=== PATIENT | male | born 1995 | race Two or more races ===

== ENCOUNTER 2022-02-22 09:18 | Emergency (ER) | payer SELFPAY ==
[~2022-02-22] VITALS: Ht 185.4 cm; Wt 203.0 kg
[2022-02-22] MEDS ORDERED: LISI-716 PO (09:32)
[2022-02-22] MEDS ORDERED: CEFD300C2 PO (10:50)
[2022-02-22] MEDS ORDERED: TRAM50TA2 PO (10:50)
[2022-02-22] MEDS ORDERED: DICL50TA2 PO (10:50)
[2022-02-22 11:38] VITALS: BP 154/96
== END 2022-02-22 11:39 | disposition home or self-care (01) ==
LOC: ER 09:18
DX: K04.7 Periapical abscess without sinus (principal)

== ENCOUNTER 2023-01-15 18:59 | Emergency (ER) | payer MEDICAID, OTHER ==
[~2023-01-15] VITALS: Ht 185.4 cm; Wt 209.4 kg
[~2023-01-15 18:59] MED LIST: CEFD300C2 PO; DICL50TA2 PO; LISI10TA34 PO; TRAM50TA2 PO
[2023-01-15 19:25] VITALS: BP 188/104; RESP 20; O2SAT 97
[2023-01-15] MEDS ORDERED: cloNIDine HCL 0.1 MG TAB PO ONE (19:45)
[2023-01-15 20:09] LABS: Basophils # (auto) 0.1 10 ^3/uL (0-0.2); Basophils % (auto) 1.2 % (0.0-2.0); Eosinophils # (auto) 0.3 10 ^3/uL (0-0.8); Eosinophils % (auto) 3.4 % (0.0-7.0); Hematocrit 42.3 % (41.0-53.0); Hemoglobin 14.1 g/dL (13.5-17.5); Lymphocytes # (auto) 2.4 10 ^3/uL (0.4-5.4); Lymphocytes % (auto) 23.2 % (10.0-50.0); Mean Corpuscular Hemoglobin 27.2 pg (28.0-32.0); Mean Corpuscular Hgb Conc. 33.3 g/dL (32.0-36.0); Mean Corpuscular Volume 81.5 fL (80.0-100.0); Monocytes # (auto) 0.5 10 ^3/uL (0-1.3); Monocytes % (auto) 4.8 % (0.0-12.0); Neutrophils % (auto) 67.4 % (37.0-80.0); Nucleated Red Blood Cells % 0.1 %; Red Blood Cells 5.19 10^6/uL (4.5-5.90); Red Cell Distribution Width 14.9 % (11.8-14.3); White Blood Cell 10.3 10^3/uL (4.4-10.8)
[2023-01-15 20:19] LABS: Urine Bacteria NONE SEEN /hpf (None Seen); Urine Blood Negative /uL (Negative); Urine Clarity Clear (Clear); Urine Color Yellow (Yellow); Urine Mucus FEW (None Seen); Urine Protein, UAD 1+ (Negative); Urine Specific Gravity 1.026 (1.001-1.035); Urine WBC 1 /hpf (0 - 3)
[2023-01-15 20:23] LABS: Alanine Aminotransferase 81 U/L (7-40); Albumin 4.5 g/dL (3.2-4.8); Alkaline Phosphatase 78 U/L (46-116); Anion Gap 6.2 (5-15); Aspartate Aminotransferase 37 U/L (13-40); BUN/Creatinine Ratio 10.6 (10.0-20.0); Bilirubin, Total 0.3 mg/dL (0.2-1.0); Blood Urea Nitrogen 9 mg/dL (9-23); Calcium 9.5 mg/dL (8.5-10.1); Carbon Dioxide 27.8 mmol/L (20-30); Chloride 106 mmol/L (98-107); Glucose 171 mg/dL (74-106); Lipase 36 U/L (12-53); Potassium 3.4 mmol/L (3.5-5.1); Sodium 140 mmol/L (136-145); Total Protein 7.4 g/dL (5.7-8.2)
[2023-01-15] MEDS ORDERED: ONDANSETRON HCL 4 MG/2 ML VIAL IV ONE (22:45)
[2023-01-15] MEDS ORDERED: MORPHINE SULFATE 4 MG/ML SYR/VIAL IV ONE (22:45)
[2023-01-15] MEDS ORDERED: PANTOPRAZOLE 40 MG/10 ML VIAL INJ IV ONE (22:45)
[2023-01-15] MEDS ORDERED: SODIUM CHLORIDE 0.9% 1,000 ML IV ONE (22:45)
[2023-01-15] MEDS ORDERED: NIFE1TAB31 PO (22:48)
[2023-01-15] MEDS ORDERED: HYDR25TA5 PO (22:48)
[2023-01-15] MEDS ORDERED: ALBUAER3 IN (22:48)
[2023-01-15] MEDS ORDERED: LOSA100T58 PO (22:48)
[2023-01-15] MEDS ORDERED: FAMO20TA10 PO (22:48)
[2023-01-15] MEDS ORDERED: ZOFR4T PO (22:48)
[2023-01-15 22:58] VITALS: PULSE 91
== END 2023-01-16 01:27 | disposition home or self-care (01) ==
LOC: ER 18:59
DX: K29.70 Gastritis, unspecified, without bleeding (principal); R07.89 Other chest pain; I10 Essential (primary) hypertension; R16.0 Hepatomegaly, not elsewhere classified; K76.0 Fatty (change of) liver, not elsewhere classified; Z76.0 Encounter for issue of repeat prescription
CPT/HCPCS: 36415; 71045; 76705; 80053; 81001; 83690; 84484; 85025; 93005

== ENCOUNTER 2024-03-29 07:37 | Emergency (ER) | payer MEDICAID ==
[~2024-03-29] VITALS: Ht 185.4 cm; Wt 195.8 kg
[~2024-03-29 07:37] MED LIST changes: +ALBUAER3 IN; +FAMO20TA10 PO; +HYDR25TA5 PO; +LOSA-535 PO; +NIFE1TAB31 PO; +ZOFR4T PO
--- NOTE | 2024-03-29 07:55 | ED.PDOC ---
General HPI Comments 28 year old male presents to the ED with chief complaint of flank pain. Patient reports that he has been experiencing bilateral flank pain since 2 weeks ago, however, the past 2 days have been worse with associated symptoms of N/V/D, mild dysuria, frequent urination, and headache. Patient relays that he was started on Wegovy 2 weeks ago, but had no problems with Ozempic before. Patient states he had taken a COVID-19 test yesterday which came back negative. Patient denies any fever, chills, cough, dizziness, hematuria, or abdominal pain. Time Seen by MD: 07:51 Reviewed notes: Nurses Notes, Medications, Allergies Allergies: Coded Allergies: NO KNOWN ALLERGIES (Unverified , 02/22/22) Home Meds Active Scripts Albuterol Sulfate (VENTOLIN MDI) 90 Mcg Ih, 1 PUFF IN Q4HR, #1 INH as needed for shortness of breath Prov:TANNER CHENEY Q ETHYLENE PLANT OPERATOR 01/15/23 Nifedipine (Nifedipine Er) 30 Mg Tab, 1 TAB PO DAILY for 30 Days, #30 TAB 1 Refill Prov:NONILUKEA Q ETHYLENE PLANT OPERATOR 01/15/23 Hctz (Hydrochlorothiazide) 25 Mg Tab, 1 TAB PO DAILY for 30 Days, #30 TAB Prov:NONILUKESteffany Q ETHYLENE PLANT OPERATOR 01/15/23 Losartan Potassium (Losartan Potassium) 100 Mg Tab, 1 TAB PO DAILY, #30 TAB Prov:NONILUKESteffany Q ETHYLENE PLANT OPERATOR 01/15/23 Ondansetron Odt 4MG Tab (ZOFRAN PO) 4 Mg Tb, 1 TAB PO Q8HR, #20 TAB ODT TAB-DISSOLVE IN MOUTH, THEN SWALLOW Prov:NONIHERBERRAQUEL Q ETHYLENE PLANT OPERATOR 01/15/23 Famotidine (PEPCID TABLET) 20 Mg Tb, 1 TAB PO BID for 30 Days, #60 TAB Prov:NONIHERBERRAQUEL Q ETHYLENE PLANT OPERATOR 01/15/23 Tramadol Hcl (Tramadol Hcl) 50 Mg Tab, 50 MG PO TID for 10 Days, #30 TAB Prov:CLIVE STEWART MD 02/22/22 Diclofenac Potassium (Diclofenac Potassium) 50 Mg Tab, 1 TAB PO TIDP for 10 Days, #30 TAB Prov:CLIVE STEWART MD 02/22/22 Cefdinir (Cefdinir) 300 Mg Cap, 2 CAP PO DAILY for 10 Days, #20 CAP Prov:CLIVE STEWART MD 02/22/22 Reported Medications Lisinopril (Lisinopril) 10 Mg Tab, 10 MG PO DAILY for 30 Days, MG 02/22/22 Information Source: Patient Mode of Arrival: Ambulatory Severity: Moderate Timing: Weeks Duration: Since onset Prehospital treatment: None Onset: Spontaneous Symptoms: Dysuria, Frequency History of: None Location: (R) Flank, (L)Flank associated signs and symptoms: Nausea, Vomiting, Flank Pain, Dysuria, Frequency Past Medical History PAST MEDICAL HISTORY: HTN Surgical History: Denies all surgeries Family History Family History: Reviewed,noncontributory to illness Social History Smoker: Non-Smoker Alcohol: Denies ETOH Use Drugs: Denies Drug Use Lives In: Home Constitutional: denies: chills, diaphoresis, fatigue, fever, malaise, sweats, weakness, others EENTM: denies: blurred vision, double vision, ear bleeding, ear discharge, ear drainage, ear pain, ear ringing, eye pain, eye redness, hearing loss, mouth pain, mouth swelling, nasal discharge, nose bleeding, nose congestion, nose pain, photophobia, tearing, throat pain, throat swelling, voice changes, others Respiratory: denies: cough, hemoptysis, orthopnea, SOB at rest, shortness of breath, SOB with excertion, stridor, wheezing, others Cardiovascular: denies: chest pain, dizzy spells, diaphoresis, Dyspnea on exertion, edema, irregular heart beat, left arm pain, lightheadedness, pa lpitations, PND, syncope, others Gastrointestinal: reports: diarrhea, nausea, vomiting; denies: abdomen distended, abdominal pain, blood streaked bowels, constipated, dysphagia, difficulty swallowing, hematemesis, melena, poor appetite, poor fluid intake, rectal bleeding, rectal pain, others Genitourinary: reports: dysuria, flank pain, frequency; denies: burning, hematuria, incontinence, penile discharge, penile sore, pain, testicle pain, testicle swelling, urgency, others Neurological: reports: headache; denies: dizziness, fainting, left sided numb ness, left sided weakness, numbness, paresthesia, pre-existing deficit, right sided numbness, right sided weakness, seizure, speech problems, tingling, tremors, weakness, others Musculoskeletal: denies: back pain, gout, joint pain, joint swelling, muscle pain, muscle stiffness, neck pain, others Integumetry: denies: bruises, change in color, change in hair/nails, dryness, laceration, lesions, lumps, rash, wounds, others Allergic/Immunocompromised: denies: Difficulty Healing, Frequent Infections, Hives, Itching, others Hematologic/Lymphatic: denies: anemia, blood clots, easy bleeding, easy bruising, swollen glands, others Endocrine: denies: excessive hunger, excessive sweating, excessive thirst, excessive urination, flushing, intolerance to cold, intolerance to heat, unexplained weight gain, unexplained weight loss, others Psychiatric: denies: anxiety, bipolar disorder, depression, hopeless, panic disorder, schizophrenia, sleepless, suicidal, others All Other Systems: Reviewed and Negative Physical Exam General Appearance: No Apparent Distress, Obese HEENT: Normal ENT Inspection, PERRL/EOMI Neck: Full Range of Motion, Non-Tender, Normal, Normal Inspection Respiratory: Chest Non-Tender, Lungs Clear, No Accessory Muscle Use, No Respiratory Distress, Normal Breath Sounds Cardiovascular: No Edema, No JVD, No Murmur, No Gallop, Normal Peripheral Pulses, Regular Rate/Rhythm Breast Exam: Deferred Gastrointestinal: No Organomegaly, Non Tender, No Pulsatile Mass, Normal Bowel Sounds, Soft, Other (Bilateral CVA tenderness) Genitalia: Deferred Pelvic: Deferred Rectal: Deferred Extremities: No calf tenderness, Normal capillary refill, Normal inspection, Normal range of motion, Non-tender, No pedal edema Musculoskeletal : Apperance: Normal Neurologic: Alert, elementary reading tutor II-XII nml as Tested, No Motor Deficits, Normal Affect, Normal Mood, No Sensory Deficits Cerebellar Function: Normal Reflexes: Normal Skin: Dry, Normal Color, Warm Lymphatic: No Adenopathy Was a procedure done? Was a procedure done?: No Differential Diagnosis Kidney stone (Female): N/A Kidney stone (Male): N/A Penile/Scrotal: N/A Urinary Problem (Male): Plelonephritis, Urethritis, Urolithiasis, UTI Urinary Problem (Female): N/A X-Ray, Labs, Meds, VS Vital Signs Date Time Temp Pulse Resp B/P (MAP) Pulse Ox O2 Delivery O2 Flow Rate FiO2 11/20/24 08:01 98.0 90 18 164/107 (126) 98 Lab Test 03/29/24 08:30 03/29/24 08:10 Range/Units Urine Color Yellow Yellow Urine Clarity Clear Clear Urine pH 6.0 5.0-9.0 Urine Specific [place] 1.028 1.001-1.035 Urine Protein Trace H Negative Urine Ketones Negative Negative Urine Blood Trace H Negative /uL Urine Nitrite Negative Negative Urine Bilirubin Negative Negative Urine Urobilinogen 2 H Negative mg/dL Urine Leukocyte Esterase Negative Negative /uL Urine RBC 3 0 - 3 /hpf Urine WBC 4 0 - 3 /hpf Urine Squamous Epithelial Cells Few <5 /hpf Urine Bacteria None seen None Seen /hpf Urine Mucus Few None Seen Urine Glucose Normal Normal mg/dL White Blood Count 7.7 4.4-10.8 10^3/uL Red Blood Count 5.56 4.5-5.90 10^6/uL Hemoglobin 15.4 13.5-17.5 g/dL Hematocrit 45.5 41.0-53.0 % Mean Corpuscular Volume 81.8 80.0-100.0 fL Mean Corpuscular Hemoglobin 27.7 L 28.0-32.0 pg Mean Corpuscular Hemoglobin Concent 33.9 32.0-36.0 g/dL Red Cell Distribution Width 15.0 H 11.8-14.3 % Platelet Count 321 140-450 10^3/uL Mean Platelet Volume 7.6 6.9-10.8 fL Neutrophils (%) (Auto) 69.4 37.0-80.0 % Lymphocytes (%) (Auto) 19.4 10.0-50.0 % Monocytes (%) (Auto) 7.1 0.0-12.0 % Eosinophils (%) (Auto) 3.5 0.0-7.0 % Basophils (%) (Auto) 0.6 0.0-2.0 % Neutrophils # (Auto) 5.4 1.6-8.6 10 ^3/uL Lymphocytes # (Auto) 1.5 0.4-5.4 10 ^3/uL Monocytes # (Auto) 0.5 0-1.3 10 ^3/uL Eosinophils # (Auto) 0.3 0-0.8 10 ^3/uL Basophils # (Auto) 0 0-0.2 10 ^3/uL Nucleated Red Blood Cells 0.0 % Sodium Level 140 136-145 mmol/L Potassium Level 3.6 3.5-5.1 mmol/L Chloride Level 106 98-107 mmol/L Carbon Dioxide Level 27 20-31 mmol/L Anion Gap 7 5-15 Blood Urea Nitrogen 11 9-23 mg/dL Creatinine 0.84 0.700-1.30 mg/dL Glomerular Filtration Rate Calc 122 >90 mL/min BUN/Creatinine Ratio 13.1 10.0-20.0 Serum Glucose 92 74-106 mg/dL Calcium Level 9.3 8.7-10.4 mg/dL Chest XR: 1. No acute cardiopulmonary disease. Images Reviewed?: Images reviewed and evaluated by me Time of 1ST Reevaluation: 08:51 Reevaluation 1ST: Unchanged Patient Education/Counseling: Diagnosis, Treatment Family Education/Counseling: No Family Present Departure 1 Departure Time of Disposition: 11:21 (Patient's workup is benign. Patient's CBC BMP and UA are benign. Chest x-ray was benign as well. Patient likely with a viral syndrome. Discharge patient home with outpatient follow up) Impression: Primary Impression: Viral syndrome Additional Impressions: Myalgia Lower back pain Qualified Codes: M54.50 - Low back pain, unspecified Disposition: 01 HOME / SELF CARE / HOMELESS Condition: Stable Additional Instructions: You likely have a viral illness. It is important to stay well rested and well hydrated. You can take Tylenol and Motrin as needed for pain and fever. For a sore throat you can drink warm tea with honey. You can take [id number] pseudoephedrine for nasal congestion. He should follow up with your regular doctor within 1 week to ensure you are doing better. If your symptoms worsen or you have any other concerns please return to the emergency room. Discharged With: Self Critical Care Note Critical Care Time?: No Stability Stability form required: No Heart Score Heart Score: Heart Score Response (Comments) Value History N/A 0 EKG N/A 0 Age N/A 0 Risk Factors N/A 0 Troponin N/A 0 Total 0 I personally scribed for LEANNA GREER MD ([email or web address]) on 03/29/24 at 07:55. Electronically submitted by George Pollock ([email or web address]). I personally scribed for LEANNA GREER MD ([email or web address]) on 03/29/24 at 08:39. Electronically submitted by George Pollock ([email or web address]). LEANNA GREER MD Mar 29, 2024 07:55
[2024-03-29] MEDS: SODIUM CHLORIDE 0.9% 1,000 ML IV ONE (08:00)
[2024-03-29] MEDS: KETOROLAC TROMETH 30 MG/ML 1ML VIAL IV ONE (08:00)
[2024-03-29] MEDS: ACETAMINOPHEN 325 MG TAB PO ONE (08:00)
[2024-03-29] MEDS: ONDANSETRON HCL 4 MG/2 ML VIAL IV ONE (08:00)
[2024-03-29 08:01] VITALS: BP 164/107; PULSE 90; RESP 18; O2SAT 98
--- NOTE | 2024-03-29 08:17 | DVH ---
Procedure: XY CHEST TWO VIEWS ROUTINE 03/29/2024 07:54 AM Indication: cough Comparison: None TECHNIQUE: XY CHEST TWO VIEWS ROUTINE FINDINGS: Medical devices: None. Cardiomediastinal: The heart is normal in size. Pulmonary vasculature is within normal limits. Lungs: No focal pulmonary opacity is seen. The costophrenic angles are clear. No pneumothorax. Bones/soft tissues: No acute abnormality is noted. IMPRESSION: 1. No acute cardiopulmonary disease.
[2024-03-29 08:32] LABS: Basophils # (auto) 0 10 ^3/uL (0-0.2); Basophils % (auto) 0.6 % (0.0-2.0); Eosinophils # (auto) 0.3 10 ^3/uL (0-0.8); Eosinophils % (auto) 3.5 % (0.0-7.0); Hematocrit 45.5 % (41.0-53.0); Hemoglobin 15.4 g/dL (13.5-17.5); Lymphocytes # (auto) 1.5 10 ^3/uL (0.4-5.4); Lymphocytes % (auto) 19.4 % (10.0-50.0); Mean Corpuscular Hemoglobin 27.7 pg (28.0-32.0); Mean Corpuscular Hgb Conc. 33.9 g/dL (32.0-36.0); Mean Corpuscular Volume 81.8 fL (80.0-100.0); Monocytes # (auto) 0.5 10 ^3/uL (0-1.3); Monocytes % (auto) 7.1 % (0.0-12.0); Neutrophils # (auto) 5.4 10 ^3/uL (1.6-8.6); Neutrophils % (auto) 69.4 % (37.0-80.0); Platelet Count (auto) 321 10^3/uL (140-450); Red Blood Cells 5.56 10^6/uL (4.5-5.90); White Blood Cell 7.7 10^3/uL (4.4-10.8)
[2024-03-29 08:40] LABS: Chloride 106 mmol/L (98-107); Potassium 3.6 mmol/L (3.5-5.1); Sodium 140 mmol/L (136-145)
[2024-03-29 08:41] LABS: Anion Gap 7 (5-15); Carbon Dioxide 27 mmol/L (20-31)
[2024-03-29 08:42] LABS: Calcium 9.3 mg/dL (8.7-10.4)
[2024-03-29 08:46] LABS: Glucose 92 mg/dL (74-106)
[2024-03-29 08:47] LABS: Urine Bacteria None Seen /hpf (None Seen)
[2024-03-29 08:47] LABS: BUN/Creatinine Ratio 13.1 (10.0-20.0); Blood Urea Nitrogen 11 mg/dL (9-23)
[2024-03-29 08:51] LABS: Urine Blood TRACE /uL (Negative); Urine Clarity Clear (Clear); Urine Color Yellow (Yellow); Urine Mucus FEW (None Seen); Urine Protein, UAD TRACE (Negative); Urine Specific Gravity 1.028 (1.001-1.035); Urine Urobilinogen 2 mg/dL (Negative); Urine WBC 4 /hpf (0 - 3)
== END 2024-03-29 12:49 | disposition home or self-care (01) ==
LOC: ER 07:37
DX: B34.9 Viral infection, unspecified (principal); M79.10 Myalgia, unspecified site; M54.59 Other low back pain; I10 Essential (primary) hypertension; Z79.899 Other long term (current) drug therapy
CPT/HCPCS: 36415; 71046; 80048; 81001; 85025

== ENCOUNTER 2025-04-18 18:25 | Emergency (ER) | payer MEDICAID ==
[~2025-04-18] VITALS: Ht 185.4 cm; Wt 214.1 kg
--- NOTE | 2025-04-18 18:38 | ECG ---
[facility] Test Date: 2025-04-18 Test Time: 18:33:14 Pat Name: NEIL TADEO Department: ED Room: Gender: M Financial Accounting Analyst: MIKE : 1995 Requested By: WILLIAM JAY Order Number: [id number] Reading MD: Mohsen Smith Measurements Intervals [place] Rate: 98 P: 46 MS: 204 QRS: 27 QRSD: 103 T: -26 QT: 355 QTc: 454 Interpretive Statements Sinus rhythm Probable left atrial enlargement LVH with secondary repolarization abnormality Electronically Signed On 04-19-2025 20:11:55 PST by Mohsen Smith Please click the below link to view image of tracing.
[2025-04-18] MEDS ORDERED: hydrALAZINE HCL 20 MG/ML VL IV ONE (18:45)
[2025-04-18 18:57] LABS: Hematocrit 39.3 % (41.0-53.0); Hemoglobin 13.3 g/dL (13.5-17.5); Mean Corpuscular Hemoglobin 27.0 pg (28.0-32.0); Mean Corpuscular Volume 79.8 fL (80.0-100.0)
--- NOTE | 2025-04-18 19:08 | ED.PDOC ---
History of Present Illness HPI Comments 29 y/o morbidly obese M presents with c/c of stabbing/throbbing, midsternal chest pain, with associate dyspnea and anxiety. Patient endorses on sudden, unprovoked, and atraumatic onset of symptoms, earlier, today. Pain radiates down his left arm. He comments on associated dry mouth sensations. Pertinent history for HTN and obstructive sleep apnea, that he was assessed for, recently, via CPAP/BiPAP night study 1-2 nights ago. Denial of any further acute symptoms. Chief Complaint: Shortness of Breath Time Seen by MD: 18:45 Reviewed Notes: Nurses Notes, Medications, Allergies Allergies: Coded Allergies: NO KNOWN ALLERGIES (Unverified , 02/22/22) Home Meds Active Scripts Metoprolol Tartrate (LOPRESSOR TABLET) 50 Mg Tb, 1 TAB PO BID, #180 TAB 3 Refills Prov:WILLIAM JAY MD 04/18/25 Albuterol Sulfate (VENTOLIN MDI) 90 Mcg Ih, 1 PUFF IN Q4HR, #1 INH as needed for shortness of breath Prov:TANNER CHENEY Q AIR CONDITIONER INSTALLER HELPER 01/15/23 Nifedipine (Nifedipine Er) 30 Mg Tab, 1 TAB PO DAILY for 30 Days, #30 TAB 1 Refill Prov:TANNER CHENEY Q AIR CONDITIONER INSTALLER HELPER 01/15/23 Hctz (Hydrochlorothiazide) 25 Mg Tab, 1 TAB PO DAILY for 30 Days, #30 TAB Prov:TANNER CHENEY Q AIR CONDITIONER INSTALLER HELPER 01/15/23 Losartan Potassium (Losartan Potassium) 100 Mg Tab, 1 TAB PO DAILY, #30 TAB Prov:TANNER CHENEY Q AIR CONDITIONER INSTALLER HELPER 01/15/23 Ondansetron Odt 4MG Tab (ZOFRAN PO) 4 Mg Tb, 1 TAB PO Q8HR, #20 TAB ODT TAB-DISSOLVE IN MOUTH, THEN SWALLOW Prov:TANNER CHENEY Q AIR CONDITIONER INSTALLER HELPER 01/15/23 Famotidine (PEPCID TABLET) 20 Mg Tb, 1 TAB PO BID for 30 Days, #60 TAB Prov:TANNER CHENEY Q AIR CONDITIONER INSTALLER HELPER 01/15/23 Tramadol Hcl (Tramadol Hcl) 50 Mg Tab, 50 MG PO TID for 10 Days, #30 TAB Prov:CLIVE STEWART MD 02/22/22 Diclofenac Potassium (Diclofenac Potassium) 50 Mg Tab, 1 TAB PO TIDP for 10 D ays, #30 TAB Prov:CLIVE STEWART MD 02/22/22 Cefdinir (Cefdinir) 300 Mg Cap, 2 CAP PO DAILY for 10 Days, #20 CAP Prov:CLIVE STEWART MD 02/22/22 Reported Medications Lisinopril (Lisinopril) 10 Mg Tab, 10 MG PO DAILY for 30 Days, MG 02/22/22 Information Source: Patient Mode of Arrival: Ambulatory Severity: Moderate Timing: Hours Duration: Since onset Prehospital treatment: None Past Medical History PAST MEDICAL HISTORY: HTN Surgical History: Denies all surgeries Family History Family History: Reviewed,noncontributory to illness Social History Smoker: Non-Smoker Alcohol: Denies ETOH Use Drugs: Denies Drug Use Lives In: Home All Other Systems: Reviewed and Negative (As per HPI) Physical Exam Exam Comments hypertensive General Appearance: Mild Distress, Obese HEENT: Normal ENT Inspection, Pharynx Normal, TMs Normal Neck: Full Range of Motion, Non-Tender, Normal, Normal Inspection Respiratory: Chest Non-Tender, Lungs Clear, No Accessory Muscle Use, No Respiratory Distress, Normal Breath Sounds Cardiovascular: No Edema, No JVD, No Murmur, No Gallop, Normal Peripheral Pulses, Regular Rate/Rhythm Breast Exam: Deferred Gastrointestinal: No Organomegaly, Non Tender, No Pulsatile Mass, Normal Bowel Sounds, Soft Genitalia: Deferred Pelvic: Deferred Rectal: Deferred Extremities: No calf tenderness, Normal capillary refill, Normal inspection, Normal range of motion, Non-tender, No pedal edema Musculoskeletal : Apperance: Normal Neurologic: Alert, houseman II-XII nml as Tested, No Motor Deficits, Normal Affect, Normal Mood, No Sensory Deficits Cerebellar Function: Normal Reflexes: Normal Skin: Dry, Normal Color, Warm Lymphatic: No Adenopathy Was a procedure done? Was a procedure done?: No EKG EKG : Pulse Rate (adult): 98 [place]: Normal Cardiac Rhythm: NSR Block: None Hypertrophy: None ST: Normal Differential Dx Considerations may include: [place], PE, ACS, URI, PNA, angina, anxiety, among others X-Ray, Labs, Meds, VS Vital Signs Date Time Temp Pulse Resp B/P (MAP) Pulse Ox O2 Delivery O2 Flow Rate FiO2 04/18/25 21:07 97.2 104 18 175/116 (135) 95 97.2 04/18/25 20:59 95 18 100 Room Air* 0 21 04/18/25 20:56 97.9 100 18 212/119 (150) 95 97.9 04/18/25 20:36 212/119 04/18/25 19:08 98 04/18/25 18:33 98 04/18/25 18:26 98.1 106 18 209/122 99 98.1 Lab Test 04/18/25 19:35 04/18/25 18:41 Range/Units Troponin I High Sensitivity 14 13 </=54 ng/L White Blood Count 10.3 4.4-10.8 10^3/uL Red Blood Count 4.92 4.5-5.90 10^6/uL Hemoglobin 13.3 L 13.5-17.5 g/dL Hematocrit 39.3 L 41.0-53.0 % Mean Corpuscular Volume 79.8 L 80.0-100.0 fL Mean Corpuscular Hemoglobin 27.0 L 28.0-32.0 pg Mean Corpuscular Hemoglobin Concent 33.8 32.0-36.0 g/dL Red Cell Distribution Width 15.7 H 11.8-14.3 % Platelet Count 223 140-450 10^3/uL Mean Platelet Volume 7.5 6.9-10.8 fL Neutrophils (%) (Auto) 37.0-80.0 % Lymphocytes (%) (Auto) 10.0-50.0 % Monocytes (%) (Auto) 0.0-12.0 % Basophils (%) (Auto) 0.0-2.0 % Neutrophils # (Auto) 1.6-8.6 10 ^3/uL Lymphocytes # (Auto) 0.4-5.4 10 ^3/uL Monocytes # (Auto) 0-1.3 10 ^3/uL Differential Total Cells Counted 100.0 100 Neutrophils % (Manual) 32.0 L 37.0-80.0 Band Neutrophils % (Manual) 0 Lymphocytes % (Manual) 50.0 10.0-50.0 Monocytes % (Manual) 11.0 0-12 Eosinophils % (Manual) 0 0-7 Basophils % (Manual) 0 0.0-2.0 Metamyelocytes % (manual) 0 Myelocytes % (Manual) 0 Promyelocytes % (Manual) 0 Blast Cells % (Manual) 0 Reactive Lymphocytes 7.0 Platelet Estimate Adequate Anisocytosis (manual) Slight Microcytosis Slight Sodium Level 143 136-145 mmol/L Potassium Level 3.4 L 3.5-5.1 mmol/L Chloride Level 106 98-107 mmol/L Carbon Dioxide Level 28 20-31 mmol/L Anion Gap 9 5-15 Blood Urea Nitrogen 8 L 9-23 mg/dL Creatinine 0.89 0.700-1.30 mg/dL Glomerular Filtration Rate Calc 119 >90 mL/min BUN/Creatinine Ratio 9.0 L 10.0-20.0 Serum Glucose 111 H 74-106 mg/dL Calcium Level 9.6 8.7-10.4 mg/dL Total Bilirubin 0.4 0.2-1.0 mg/dL Aspartate Amino Transferase (AST) 176 H 13-40 U/L Alanine Aminotransferase (ALT) 290 H 7-40 U/L Alkaline Phosphatase 141 H 46-116 U/L B-Type Natriuretic Peptide 21.02 0-100 pg/mL Total Protein 8.0 5.7-8.2 g/dL Albumin 4.4 3.2-4.8 g/dL Current Medications Medications (Trade) Dose Ordered Sig/Telma Route Start Time Stop Time Status Last Admin Hydralazine HCl (Apresoline Tablet) 50 mg ONCE ONCE PO 04/18/25 20:30 04/18/25 20:31 DC 04/18/25 20:36 [place] [id number] Ph: [phone] DIAGNOSTIC IMAGING Diagnostic Imaging Report : [id number] Signed PATIENT: NEIL TADEO ACCT: [id number] UNIT: [id number] : 1995 LOC: ER ROOM / BED: / AGE / SEX: 29 / M ADM STATUS: REG ER SERVICE 1831 ORDERING PHYSICIAN: WILLIAM JAY MD PROCEDURE(s): CXRP - CHEST PORTABLE REASON: SOB ORDER NUMBER(s): [id number], ACCESSION NUMBER(s): [id number] CHEST RADIOGRAPH INDICATION: SOB TECHNIQUE: Single frontal view of the chest was obtained COMPARISON: XY CHEST PORTABLE on DOS: 01/15/23 FINDINGS: Lines and Tubes: None Lungs: No focal consolidation. Pleura: No effusion. No pneumothorax. Cardiomediastinal contours: Unremarkable Bones: No acute osseous abnormality. IMPRESSION: 1. No acute cardiopulmonary disease. ATED BY: ELIANA LIGHT Jr., DO DICTATED DATE/TIME: 04/18/251912 SIGNED BY: ELIANA LIGHT Jr., SIGNED DATE/TIME: 04/18/251912 CC: Time of 1ST Reevaluation: 19:15 Reevaluation 1ST: Unchanged Patient Education/Counseling: Diagnosis, Treatment, Need For Follow Up Family Education/Counseling: No Family Present SEPSIS Sepsis Screen Date sepsis recognized/suspect: Apr 18, 2025 Time Sepsis recognized/suspect: 1828 Recent Procedure: No On Antibiotic Therapy: No Respiratory Rate >20: No Heart Rate >90: Yes Temp<36 C (96.8 F) or >38.3 C: No SBP <90 or MAP <65 mmHG: No New Acute Mental Status Change: No Is the patient on CPAP, BIPAP,: No Physician Orders Chest Portable (04/18/25 18:31) [place]ock Iv (04/18/25 18:31) Vital Signs Date Time Temp Pulse Resp B/P (MAP) Pulse Ox O2 Delivery O2 Flow Rate FiO2 04/18/25 21:07 97.2 104 18 175/116 (135) 95 97.2 04/18/25 20:59 95 18 100 Room Air* 0 21 04/18/25 20:56 97.9 100 18 212/119 (150) 95 97.9 04/18/25 20:36 212/119 04/18/25 19:08 98 04/18/25 18:33 98 04/18/25 18:26 98.1 106 18 209/122 99 98.1 Laboratory Tests Test 04/18/25 18:41 White Blood Count 10.3 10^3/uL (4.4-10.8) Medications Medications Dose Ordered Sig/Telma Route Start Time Stop Time Status Last Admin Dose Admin Hydralazine HCl 50 mg ONCE ONCE PO 04/18/25 20:30 04/18/25 20:31 DC 04/18/25 20:36 Departure 1 Departure Time of Disposition: 21:00 Impression: Primary Impression: Dyspnea Additional Impression: Hypertensive urgency Disposition: 01 HOME / SELF CARE / HOMELESS Condition: Stable e-Prescriptions Metoprolol Tartrate (LOPRESSOR TABLET) 50 Mg Tb 1 TAB PO BID, #180 TAB 3 Refills Prov: WILLIAM JAY MD 04/18/25 Discharged With: Self Critical Care Note Critical Care Time?: No Stability Stability form required: No Heart Score Heart Score: Heart Score Response (Comments) Value History Slightly Suspicious 0 EKG Normal 0 Age <45 0 Risk Factors >3 or Hx ASHD 2 Troponin Normal limit 0 Total 2 I personally scribed for WILLIAM JAY MD ([email or web address]) on 04/18/25 at 19:08. Electronically submitted by Reji Jauregui ([email or web address]). I personally scribed for WILLIAM JAY MD ([email or web address]) on 04/18/25 at 19:28. Electronically submitted by Reji Jauregui ([email or web address]). WILLIAM JAY MD Apr 18, 2025 19:08
[2025-04-18 19:12] LABS: Albumin 4.4 g/dL (3.2-4.8); Anion Gap 9 (5-15); BUN/Creatinine Ratio 9.0 (10.0-20.0); Bilirubin, Total 0.4 mg/dL (0.2-1.0); Calcium 9.6 mg/dL (8.7-10.4); Carbon Dioxide 28 mmol/L (20-31); Chloride 106 mmol/L (98-107); Sodium 143 mmol/L (136-145); Total Protein 8.0 g/dL (5.7-8.2)
--- NOTE | 2025-04-18 19:15 | DVH ---
CHEST RADIOGRAPH INDICATION: SOB TECHNIQUE: Single frontal view of the chest was obtained COMPARISON: XY CHEST PORTABLE on DOS: 01/15/23 FINDINGS: Lines and Tubes: None Lungs: No focal consolidation. Pleura: No effusion. No pneumothorax. Cardiomediastinal contours: Unremarkable Bones: No acute osseous abnormality. IMPRESSION: 1. No acute cardiopulmonary disease.
[2025-04-18 19:26] LABS: Alanine Aminotransferase 290 U/L (7-40); Alkaline Phosphatase 141 U/L (46-116); Blood Urea Nitrogen 8 mg/dL (9-23); Glucose 111 mg/dL (74-106); Potassium 3.4 mmol/L (3.5-5.1)
[2025-04-18] MEDS ORDERED: MET50T PO (19:39)
[2025-04-18 19:47] LABS: Anisocytosis Slight; Total Cells Counted 100.0 (100)
[2025-04-18 20:59] VITALS: PULSE 95; RESP 18; O2SAT 100
[2025-04-18 21:07] VITALS: BP 175/116; PULSE 104; RESP 18; TEMP 97.2; O2SAT 95
== END 2025-04-18 21:11 | disposition home or self-care (01) ==
LOC: ER 18:25
DX: I16.0 Hypertensive urgency (principal); R06.00 Dyspnea, unspecified; I10 Essential (primary) hypertension; Z79.899 Other long term (current) drug therapy
CPT/HCPCS: 36415; 71045; 80053; 83880; 84484; 85007; 85027; 93005